=== PATIENT | female | born 1965 | race Two or more races ===

== ENCOUNTER 2020-07-28 16:52 | Emergency (ER) | payer MEDICAID ==
[~2020-07-28] VITALS: Ht 162.6 cm; Wt 72.6 kg
[2020-07-28 16:56] VITALS: BP 119/76
[2020-07-28] MEDS ORDERED: Methocarbamol 750mg tab ORAL ONE (17:00)
[2020-07-28] MEDS ORDERED: Ketorolac 30mg Inj IM ONE (17:00)
[2020-07-28 18:01] LABS: APPEARANCE,URINE SLIGHTLY CLOUDY; BILIRUBIN, URINE NEGATIVE (NEGATIVE); COLOR,URINE PALE YELLOW; GLUCOSE, URINE (UA) NEGATIVE (NEGATIVE); KETONES,URINE NEGATIVE (NEGATIVE); LEUKOCYTE ESTERASE ,URINE 1+ (NEGATIVE); NITRITE,URINE NEGATIVE (NEGATIVE); PH,URINE 7 (4.5-8.0); PROTEIN,URINE NEGATIVE (NEGATIVE); UROBILINOGEN,URINE NORMAL MG/DL (0.0-1.0)
--- NOTE | 2020-07-28 18:14 | Diagnostic Imaging Report ---
EXAM: CT Cervical Spine Without Intravenous Contrast CLINICAL HISTORY: TRAUMA TECHNIQUE: Axial computed tomography images of the cervical spine without intravenous contrast. CTDI is 20.2 mGy and DLP is 517.2 mGy-cm. One or more of the following dose reduction techniques were used: automated exposure control, adjustment of the mA and/or kV according to patient size, use of iterative reconstruction technique. COMPARISON: No relevant prior studies available. FINDINGS: Vertebrae: No acute fracture or subluxation. Discs/spinal canal/neural foramina: No acute findings. Soft tissues: Unremarkable. IMPRESSION: No acute fracture or subluxation.
--- NOTE | 2020-07-28 18:14 | Diagnostic Imaging Report ---
EXAM: CT Lumbar Spine Without Intravenous Contrast CLINICAL HISTORY: TRAUMA TECHNIQUE: Axial computed tomography images of the lumbar spine without intravenous contrast. CTDI is 7.2 mGy and DLP is 233.5 mGy-cm. One or more of the following dose reduction techniques were used: automated exposure control, adjustment of the mA and/or kV according to patient size, use of iterative reconstruction technique. COMPARISON: No relevant prior studies available. FINDINGS: Vertebrae: No acute fracture or subluxation. Discs/spinal canal/neural foramina: No acute findings. Soft tissues: Unremarkable. IMPRESSION: No acute fracture or subluxation.
--- NOTE | 2020-07-28 18:15 | Diagnostic Imaging Report ---
EXAM: XR Left Knee, 3 Views CLINICAL HISTORY: TRAUMA TECHNIQUE: Three views of the left knee. COMPARISON: No relevant prior studies available. FINDINGS: Bones/joints: No acute displaced fracture or dislocation. No significant joint effusion. Soft tissues: Unremarkable. IMPRESSION: No acute displaced fracture or dislocation.
--- NOTE | 2020-07-28 18:15 | Diagnostic Imaging Report ---
EXAM: XR Right Knee, 3 Views CLINICAL HISTORY: TRAUMA TECHNIQUE: Three views of the right knee. COMPARISON: No relevant prior studies available. FINDINGS: Bones/joints: No acute displaced fracture or dislocation. No significant joint effusion. Soft tissues: Unremarkable. IMPRESSION: No acute displaced fracture or dislocation.
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
[2020-07-28] MEDS ORDERED: CEPHALEXIN500 MG ORAL (18:29)
[2020-07-28] MEDS ORDERED: IBUPROFEN600 M1 ORAL (18:29)
[2020-07-28] MEDS ORDERED: LIDODERM700 M1 TOPIC (18:29)
[2020-07-28] MEDS ORDERED: ROBAXIN-500MG ORAL (18:29)
[2020-07-28 18:33] VITALS: BP 122/79
== END 2020-07-28 18:30 | disposition home or self-care (01) ==
LOC: EDBD 16:52 → EMR 17:40
DX: S16.1XXA Strain of muscle, fascia and tendon at neck level, initial encounter (principal); S39.012A Strain of muscle, fascia and tendon of lower back, initial encounter; S80.02XA Contusion of left knee, initial encounter; S80.01XA Contusion of right knee, initial encounter; N39.0 Urinary tract infection, site not specified; V73.6XXA Passenger on bus injured in collision with car, pick-up truck or van in traffic accident, initial encounter
CPT/HCPCS: 72125; 72131; 73562; 81003; 96372; J1885; Z7502; 99284